=== PATIENT | male | born 1960 | race Caucasian/White ===

== ENCOUNTER 2021-07-08 23:20 | Emergency (ER) | payer SELFPAY | END 2021-07-08 23:50 | disposition left against medical advice (07) | LOC: JD.ED 23:20 | DX: Z53.21 Procedure and treatment not carried out due to patient leaving prior to being seen by health care provider (principal) ==

== ENCOUNTER 2023-03-03 12:55 | Emergency (ER) | payer SELFPAY ==
[2023-03-03] MEDS ORDERED: Sodium Chloride 0.9% 10 ML Syringe FLUSH PRN (12:58)
[2023-03-03 13:13] LABS: BASOPHILS PERCENT AUTO 1.8 % (0.1-1.2); EOSINOPHILS ABSOLUTE AUTO 0.04 K/mm3 (0.04-0.54); EOSINOPHILS PERCENT AUTO 0.7 (0.8-7.0); HEMATOCRIT 44.9 % (40.1-51.0); HEMOGLOBIN 14.8 gm/dl (13.7-17.5); IMMATURE GRAN ABSOLUTE AUTO 0.05 K/mm3 (0.00-0.10); IMMATURE GRAN PERCENT AUTO 0.9 % (<=1.0); LYMPHOCYTES ABSOLUTE AUTO 1.67 K/mm3 (1.32-3.57); LYMPHOCYTES PERCENT AUTO 29.9 % (21.8-53.1); MEAN CORPUSCULAR HEMOGLOBIN 34.7 pg (25.7-32.2); MEAN CORPUSCULAR VOLUME 105.4 fl (79.0-92.2); MEAN PLATELET VOLUME 8.5 fl (9.4-12.3); MONOCYTES ABSOLUTE AUTO 1.01 K/mm3 (0.30-0.82); MONOCYTES PERCENT AUTO 18.1 % (5.3-12.2); NEUTROPHILS ABSOLUTE AUTO 2.71 K/mm3 (1.78-5.38); NEUTROPHILS PERCENT AUTO 48.6 % (34.0-67.9); PLATELET COUNT,PLT 323 K/mm3 (163-337); RED BLOOD CELL COUNT 4.26 M/mm3 (4.63-6.08); WHITE BLOOD CELL COUNT,WBC 5.58 K/mm3 (4.23-9.07)
[2023-03-03 13:31] LABS: A/G RATIO 0.8 (1-2); ALANINE AMINOTRANSFERASE,ALT 51 U/L (16-63); ALBUMIN 3.6 g/dl (3.4-5.0); ALKALINE PHOSPHATASE 94 U/L (46-116); ANION GAP 18.9 (5-15); ASPARTATE AMNIOTRANSFERASE,AST 44 U/L (15-37); BILIRUBIN TOTAL 1.2 mg/dL (0.2-1.0); BLOOD UREA NITROGEN,BUN 9 mg/dL (7-18); BUN/CREATININE RATIO 8.2 (14-18); CALCIUM 8.9 mg/dL (8.5-10.1); CARBON DIOXIDE,CO2 22 mEq/L (21-32); CHLORIDE,CL 105 mEq/L (98-107); CREATININE 1.1 mg/dL (0.7-1.3); ESTIMATED GFR 76 mL/min (>60); GLUCOSE RANDOM 93 mg/dL (70-99); POTASSIUM,K 3.9 mEq/L (3.5-5.1); PROTEIN TOTAL,TP 7.9 g/dl (6.4-8.2); SODIUM,NA 142 mEq/L (136-145)
[2023-03-03 13:55] LABS: APPEARANCE,URINE CLEAR (Clear); BILIRUBIN,URINE NEGATIVE (Negative); COLOR,URINE YELLOW (Yellow); GLUCOSE,URINE NEGATIVE (Negative); KETONES,URINE NEGATIVE (Negative); LEUKOCYTE ESTERASE,URINE NEGATIVE (Negative); NITRITE,URINE NEGATIVE (Negative); OCCULT BLOOD,URINE TRACE-LYSED (Negative); PROTEIN,URINE NEGATIVE (Negative); UROBILINOGEN,URINE 0.2 (0.2-1.0)
[2023-03-03 14:03] LABS: BACTERIA,URINE NOT SEEN /hpf (FEW); MUCUS,URINE NOT SEEN /hpf (FEW); RBC,URINE 0-5 /hpf (0-5); SQUAMOUS EPITHELIAL CELLS,UR 0-5 /hpf (0-5); WBC,URINE 0-5 /hpf (0-5)
[2023-03-03 14:06] LABS: BARBITURATE SCREEN,URINE NEGATIVE (CUTOFF=200); BENZODIAZEPINES SCREEN,URINE NEGATIVE (CUTOFF=150); BUPRENORPHINE SCREEN,URINE NEGATIVE (CUTOFF=10); METHADONE SCREEN, URINE NEGATIVE (CUT0FF=200); METHAMPHETAMINES SCREEN, URINE NEGATIVE (CUTOFF=500); OXYCODONE SCREEN,URINE NEGATIVE (CUT0FF=100); PROPOXYPHENE SCREEN,URINE NEGATIVE (CUTOFF=300); THC SCREEN,URINE 20 NG/ML PRESUMPTIVE POSITIVE (CUTOFF=50)
[2023-03-03 14:17] LABS: AMPHETAMINES SCREEN, URINE NEGATIVE (CUTOFF=500)
== END 2023-03-03 14:34 | disposition home or self-care (01) ==
LOC: JD.ED 12:55
DX: S09.90XA Unspecified injury of head, initial encounter (principal); S00.83XA Contusion of other part of head, initial encounter; F10.920 Alcohol use, unspecified with intoxication, uncomplicated; W10.9XXA Fall (on) (from) unspecified stairs and steps, initial encounter
CPT/HCPCS: 36415; 70450; 70450-26; 72125; 72125-26; 80053; 80306; 80307; 81001; 85025; 99284

== ENCOUNTER 2023-09-17 14:33 | Inpatient (IN) | payer OTHER ==
[2023-09-17] MEDS ORDERED: Diltiazem 25 MG/5 ML SDV IVPUSH ONE ×3 (15:03→18:19)
[2023-09-17 15:33] LABS: BASOPHILS PERCENT AUTO 0.6 % (0.0-1.0); EOSINOPHILS PERCENT AUTO 0.5 % (0.0-6.0); HEMATOCRIT 27.6 % (42.0-52.0); HEMOGLOBIN 8.5 gm/dl (14.0-18.0); IMMATURE GRAN ABSOLUTE AUTO 0.32 K/mm3 (0.00-0.05); IMMATURE GRAN PERCENT AUTO 4.9 % (0.0-0.4); LYMPHOCYTES ABSOLUTE AUTO 0.9 K/mm3 (1.0-4.8); MEAN CORPUSCULAR HEMOGLOBIN 37.1 pg (28.0-32.0); MEAN CORPUSCULAR HGB CONC 30.8 g/dl (32.0-36.0); MEAN CORPUSCULAR VOLUME 120.5 fl (83.0-99.0); MEAN PLATELET VOLUME 9.9 fl (9.4-12.4); MONOCYTES ABSOLUTE AUTO 0.5 K/mm3 (0.0-0.8); MONOCYTES PERCENT AUTO 7.6 % (0.0-8.0); NEUTROPHILS ABSOLUTE AUTO 4.7 K/mm3 (1.8-7.7); NEUTROPHILS PERCENT AUTO 72.4 % (41.0-71.0); NRBC ABSOLUTE 0.07 (0.00-0.02); NRBC PERCENT 1.1 % (0.0-0.2); PLATELET COUNT,PLT 114 K/mm3 (150-400); RED BLOOD CELL COUNT 2.29 M/mm3 (4.52-5.90); WHITE BLOOD CELL COUNT,WBC 6.49 K/mm3 (3.9-11.3)
[2023-09-17] MEDS ORDERED: Pantoprazole 40 MG Vial IVPUSH ONE (15:51)
[2023-09-17 15:52] LABS: A/G RATIO 0.8 (1-2); ALBUMIN 2.8 g/dl (3.4-5.0); BILIRUBIN TOTAL 2.2 mg/dL (0.2-1.0); BUN/CREATININE RATIO 11.2 (14-18); CALCIUM 8.7 mg/dL (8.5-10.1); CREATININE 1.7 mg/dL (0.7-1.3); EST CRCL DRUG DOSING (CG) 32.2 mL/min; ETHANOL BLOOD MEDICAL 0.01 gm% (0.00); PROTEIN TOTAL,TP 6.5 g/dl (6.4-8.2)
[2023-09-17 16:03] LABS: INR 1.05; PROTHROMBIN TIME 11.2 SECONDS (9.7-12.0)
[2023-09-17 16:05] LABS: PTT,PARTIAL THROMBOPLSTIN TIME 26.4 SECONDS (21.7-31.4)
[2023-09-17] MEDS: Diltiazem 125 MG in Sodium Chloride 0.9% 100 ML IV SCH (16:08)
[2023-09-17 16:23] LABS: SLIDE REVIEW ABNORMAL SMEAR
[2023-09-17] MEDS ORDERED: Sodium Chloride 0.9% 500 ML IV ONE ×2 (16:27→16:34)
[2023-09-17 18:50] LABS: BARBITURATE SCREEN,URINE NEGATIVE (CUTOFF=200); BENZODIAZEPINES SCREEN,URINE NEGATIVE (CUTOFF=150); BUPRENORPHINE SCREEN,URINE NEGATIVE (CUTOFF=10); METHADONE SCREEN, URINE NEGATIVE (CUT0FF=200); METHAMPHETAMINES SCREEN, URINE NEGATIVE (CUTOFF=500); OXYCODONE SCREEN,URINE NEGATIVE (CUT0FF=100); THC SCREEN,URINE 20 NG/ML PRESUMPTIVE POSITIVE (CUTOFF=50)
[2023-09-17 19:04] LABS: AMPHETAMINES SCREEN, URINE NEGATIVE (CUTOFF=500)
[2023-09-17] MEDS: Sodium Chloride 0.9% 1,000 ML IV SCH (19:50)
[2023-09-17] MEDS: Pantoprazole 40 MG Vial IVPUSH SCH (20:23)
[2023-09-18] MEDS: Diltiazem 125 MG in Sodium Chloride 0.9% 100 ML IV SCH (00:38)
[2023-09-18 06:25] LABS: BASOPHILS PERCENT AUTO 0.1 % (0.0-1.0); EOSINOPHILS PERCENT AUTO 0.1 % (0.0-6.0); HEMOGLOBIN 9.9 gm/dl (14.0-18.0); IMMATURE GRAN ABSOLUTE AUTO 0.08 K/mm3 (0.00-0.05); LYMPHOCYTES ABSOLUTE AUTO 0.1 K/mm3 (1.0-4.8); LYMPHOCYTES PERCENT AUTO 1.3 % (24.0-44.0); MEAN CORPUSCULAR HEMOGLOBIN 34.4 pg (28.0-32.0); MEAN CORPUSCULAR HGB CONC 34.1 g/dl (32.0-36.0); MEAN CORPUSCULAR VOLUME 100.7 fl (83.0-99.0); MEAN PLATELET VOLUME 10.6 fl (9.4-12.4); MONOCYTES ABSOLUTE AUTO 0.3 K/mm3 (0.0-0.8); MONOCYTES PERCENT AUTO 3.6 % (0.0-8.0); NEUTROPHILS ABSOLUTE AUTO 7.3 K/mm3 (1.8-7.7); NEUTROPHILS PERCENT AUTO 93.9 % (41.0-71.0); NRBC ABSOLUTE 0.03 (0.00-0.02); NRBC PERCENT 0.4 % (0.0-0.2); PLATELET COUNT,PLT 79 K/mm3 (150-400); RED BLOOD CELL COUNT 2.88 M/mm3 (4.52-5.90); WHITE BLOOD CELL COUNT,WBC 7.78 K/mm3 (3.9-11.3)
[2023-09-18 06:44] LABS: A/G RATIO 0.8 (1-2); ALBUMIN 2.5 g/dl (3.4-5.0); BILIRUBIN TOTAL 3.5 mg/dL (0.2-1.0); CALCIUM 7.8 mg/dL (8.5-10.1); EST CRCL DRUG DOSING (CG) 68.68 mL/min; MAGNESIUM 1.2 mg/dL (1.8-2.4); PROTEIN TOTAL,TP 5.8 g/dl (6.4-8.2)
[2023-09-18 07:38] LABS: SLIDE REVIEW ABNORMAL SMEAR
[2023-09-18] MEDS ORDERED: Thiamine 100 MG in Sodium Chloride 0.9% 100 ML IV SCH (09:00)
[2023-09-18] MEDS: Thiamine 200 MG/2 ML MDV IVPUSH SCH (10:10)
[2023-09-18] MEDS: Folic Acid 50 MG/10 ML MDV IV SCH (10:11)
[2023-09-18] MEDS: Pantoprazole 40 MG Vial IVPUSH SCH ×2 (10:13→20:02)
[2023-09-18] MEDS: Nicotine 14 MG/24 Hr Patch TRDERM SCH (10:27)
[2023-09-18] MEDS ORDERED: traZODone 50 MG Tab PO ONE (23:54)
[2023-09-19] MEDS: LORazepam 2 MG/ML SDV IVPUSH PRN ×4 (01:47→18:26)
[2023-09-19] MEDS: Sodium Chloride 0.9% 1,000 ML IV SCH (04:55)
[2023-09-19 05:30] LABS: BASOPHILS PERCENT AUTO 0.4 % (0.0-1.0); EOSINOPHILS ABSOLUTE AUTO 0.1 K/mm3 (0.0-0.4); EOSINOPHILS PERCENT AUTO 0.8 % (0.0-6.0); HEMATOCRIT 31.6 % (42.0-52.0); HEMOGLOBIN 11.3 gm/dl (14.0-18.0); IMMATURE GRAN ABSOLUTE AUTO 0.09 K/mm3 (0.00-0.05); IMMATURE GRAN PERCENT AUTO 1.1 % (0.0-0.4); LYMPHOCYTES ABSOLUTE AUTO 0.2 K/mm3 (1.0-4.8); MEAN CORPUSCULAR HEMOGLOBIN 35.6 pg (28.0-32.0); MEAN CORPUSCULAR HGB CONC 35.8 g/dl (32.0-36.0); MEAN CORPUSCULAR VOLUME 99.7 fl (83.0-99.0); MEAN PLATELET VOLUME 10.9 fl (9.4-12.4); MONOCYTES ABSOLUTE AUTO 0.5 K/mm3 (0.0-0.8); MONOCYTES PERCENT AUTO 5.6 % (0.0-8.0); NEUTROPHILS ABSOLUTE AUTO 7.1 K/mm3 (1.8-7.7); NEUTROPHILS PERCENT AUTO 89.1 % (41.0-71.0); NRBC ABSOLUTE 0.03 (0.00-0.02); NRBC PERCENT 0.4 % (0.0-0.2); PLATELET COUNT,PLT 66 K/mm3 (150-400); RED BLOOD CELL COUNT 3.17 M/mm3 (4.52-5.90)
[2023-09-19 05:39] LABS: A/G RATIO 0.7 (1-2); ALBUMIN 2.4 g/dl (3.4-5.0); BUN/CREATININE RATIO 12.5 (14-18); CALCIUM 7.6 mg/dL (8.5-10.1); CREATININE 0.8 mg/dL (0.7-1.3); EST CRCL DRUG DOSING (CG) 85.85 mL/min; PROTEIN TOTAL,TP 5.9 g/dl (6.4-8.2)
[2023-09-19 06:28] LABS: SLIDE REVIEW ABNORMAL SMEAR
[2023-09-19] MEDS: Pantoprazole 40 MG Vial IVPUSH SCH ×2 (08:42→20:12)
[2023-09-19] MEDS: Thiamine 200 MG/2 ML MDV IVPUSH SCH (08:42)
[2023-09-19] MEDS: Folic Acid 50 MG/10 ML MDV IV SCH (08:43)
[2023-09-19] MEDS: Nicotine 14 MG/24 Hr Patch TRDERM SCH (08:51)
[2023-09-19] MEDS ORDERED: Potassium Bicarbonate/Cit Ac 20 MEQ Effervescent Tab PO ONE (10:30)
[2023-09-19] MEDS ORDERED: Magnesium Sulfate/Water 2 GM/50 ML BAG IV ONE (11:34)
[2023-09-19 21:02] LABS: BASOPHILS PERCENT AUTO 0.2 % (0.0-1.0); EOSINOPHILS ABSOLUTE AUTO 0.1 K/mm3 (0.0-0.4); EOSINOPHILS PERCENT AUTO 0.9 % (0.0-6.0); HEMATOCRIT 29.3 % (42.0-52.0); HEMOGLOBIN 10.3 gm/dl (14.0-18.0); IMMATURE GRAN ABSOLUTE AUTO 0.16 K/mm3 (0.00-0.05); LYMPHOCYTES ABSOLUTE AUTO 0.3 K/mm3 (1.0-4.8); LYMPHOCYTES PERCENT AUTO 3.4 % (24.0-44.0); MEAN CORPUSCULAR HEMOGLOBIN 34.9 pg (28.0-32.0); MEAN CORPUSCULAR HGB CONC 35.2 g/dl (32.0-36.0); MEAN CORPUSCULAR VOLUME 99.3 fl (83.0-99.0); MEAN PLATELET VOLUME 10.2 fl (9.4-12.4); MONOCYTES ABSOLUTE AUTO 0.6 K/mm3 (0.0-0.8); MONOCYTES PERCENT AUTO 6.8 % (0.0-8.0); NEUTROPHILS ABSOLUTE AUTO 7.1 K/mm3 (1.8-7.7); NEUTROPHILS PERCENT AUTO 86.7 % (41.0-71.0); NRBC ABSOLUTE 0.04 (0.00-0.02); NRBC PERCENT 0.5 % (0.0-0.2); PLATELET COUNT,PLT 74 K/mm3 (150-400); RED BLOOD CELL COUNT 2.95 M/mm3 (4.52-5.90); WHITE BLOOD CELL COUNT,WBC 8.18 K/mm3 (3.9-11.3)
[2023-09-20] MEDS: LORazepam 2 MG/ML SDV IVPUSH PRN (03:53)
[2023-09-20 05:42] LABS: BASOPHILS PERCENT AUTO 0.1 % (0.0-1.0); EOSINOPHILS PERCENT AUTO 0.4 % (0.0-6.0); HEMATOCRIT 30.6 % (42.0-52.0); HEMOGLOBIN 10.5 gm/dl (14.0-18.0); IMMATURE GRAN ABSOLUTE AUTO 0.12 K/mm3 (0.00-0.05); IMMATURE GRAN PERCENT AUTO 1.5 % (0.0-0.4); LYMPHOCYTES ABSOLUTE AUTO 0.3 K/mm3 (1.0-4.8); LYMPHOCYTES PERCENT AUTO 3.6 % (24.0-44.0); MEAN CORPUSCULAR HEMOGLOBIN 34.7 pg (28.0-32.0); MEAN CORPUSCULAR HGB CONC 34.3 g/dl (32.0-36.0); MEAN PLATELET VOLUME 11.1 fl (9.4-12.4); MONOCYTES ABSOLUTE AUTO 0.9 K/mm3 (0.0-0.8); MONOCYTES PERCENT AUTO 10.3 % (0.0-8.0); NEUTROPHILS PERCENT AUTO 84.1 % (41.0-71.0); NRBC ABSOLUTE 0.03 (0.00-0.02); NRBC PERCENT 0.4 % (0.0-0.2); PLATELET COUNT,PLT 74 K/mm3 (150-400); RED BLOOD CELL COUNT 3.03 M/mm3 (4.52-5.90); WHITE BLOOD CELL COUNT,WBC 8.26 K/mm3 (3.9-11.3)
[2023-09-20 05:55] LABS: A/G RATIO 0.6 (1-2); ALBUMIN 2.4 g/dl (3.4-5.0); ANION GAP 14.6 (5-15); BILIRUBIN TOTAL 2.6 mg/dL (0.2-1.0); BUN/CREATININE RATIO 12.9 (14-18); CALCIUM 7.3 mg/dL (8.5-10.1); CREATININE 0.7 mg/dL (0.7-1.3); EST CRCL DRUG DOSING (CG) 99.61 mL/min; POTASSIUM,K 2.6 mEq/L (3.5-5.1); PROTEIN TOTAL,TP 6.2 g/dl (6.4-8.2)
[2023-09-20 06:35] LABS: SLIDE REVIEW ABNORMAL SMEAR
[2023-09-20] MEDS: Folic Acid 50 MG/10 ML MDV IV SCH (08:38)
[2023-09-20] MEDS: Pantoprazole 40 MG Vial IVPUSH SCH (08:38)
[2023-09-20] MEDS: Thiamine 200 MG/2 ML MDV IVPUSH SCH (08:39)
[2023-09-20] MEDS ORDERED: LORazepam 2 MG/ML SDV IVPUSH PRN (08:50)
[2023-09-20] MEDS: Nicotine 14 MG/24 Hr Patch TRDERM SCH (08:53)
[2023-09-20] MEDS ORDERED: Magnesium Sulfate/Water 4 GM in Premix Bag 1 BAG IV ONE (09:32)
[2023-09-20] MEDS: Potassium Chloride 10 MEQ in Premix Bag 1 BAG IV SCH ×4 (09:50→13:28)
[2023-09-20] MEDS: Potassium Chloride 20 MEQ Tab.ER PO SCH ×2 (10:11→20:55)
[2023-09-20] MEDS: Magnesium Oxide 400 MG Tab PO SCH ×2 (11:10→20:55)
[2023-09-20] MEDS ORDERED: Potassium Phosphates 3 mMole/ML 15 ML SDV IV ONE (12:22)
[2023-09-20] MEDS ORDERED: Metoprolol Succinate 50 MG Tab.ER PO SCH (12:30)
[2023-09-20] MEDS ORDERED: Potassium Phosphates 30 MMOLE in Sodium Chloride 0.9% 500 ML IV ONE (14:00)
[2023-09-20 15:24] LABS: APPEARANCE,URINE CLEAR (Clear); BILIRUBIN,URINE 3+ (Negative); COLOR,URINE AMBER (Yellow); GLUCOSE,URINE TRACE (Negative); KETONES,URINE 1+ (Negative); LEUKOCYTE ESTERASE,URINE NEGATIVE (Negative); NITRITE,URINE NEGATIVE (Negative); OCCULT BLOOD,URINE NEGATIVE (Negative); PROTEIN,URINE 1+ (Negative); UROBILINOGEN,URINE >=8.0 (0.2-1.0)
[2023-09-20 15:45] LABS: BACTERIA,URINE FEW /hpf (FEW); EPITHELIAL CELLS,URINE 0-5 /hpf (0-5); MUCUS,URINE FEW /hpf (FEW); RBC,URINE 0-5 /hpf (0-5); WBC,URINE 0-5 /hpf (0-5)
[2023-09-20] MEDS: Pantoprazole 40 MG Tab.CR PO SCH (16:36)
[2023-09-20] MEDS: Dextrose 5%-0.9% NaCl 1,000 ML IV SCH (22:41)
[2023-09-21] MEDS: Dextrose 5%-0.9% NaCl 1,000 ML IV SCH (05:39)
[2023-09-21] MEDS: Pantoprazole 40 MG Tab.CR PO SCH ×2 (05:39→15:15)
[2023-09-21 07:12] LABS: HEMATOCRIT 31.8 % (42.0-52.0); HEMOGLOBIN 10.5 gm/dl (14.0-18.0); MEAN PLATELET VOLUME 9.7 fl (9.4-12.4); NRBC ABSOLUTE 0.02 (0.00-0.02); NRBC PERCENT 0.2 % (0.0-0.2); PLATELET COUNT,PLT 109 K/mm3 (150-400); WHITE BLOOD CELL COUNT,WBC 9.26 K/mm3 (3.9-11.3)
[2023-09-21] MEDS: Nicotine 14 MG/24 Hr Patch TRDERM SCH (08:00)
[2023-09-21] MEDS: Acetaminophen 325 MG Tab PO PRN ×2 (08:00→20:36)
[2023-09-21] MEDS: Folic Acid 1 MG Tab PO SCH (08:00)
[2023-09-21] MEDS: Potassium Chloride 20 MEQ Tab.ER PO SCH ×3 (08:00→20:35)
[2023-09-21] MEDS: Magnesium Oxide 400 MG Tab PO SCH (08:00)
[2023-09-21] MEDS: Thiamine 100 MG Tab PO SCH (08:00)
[2023-09-21 10:25] LABS: ANION GAP 14.1 (5-15); BUN/CREATININE RATIO 13.3 (14-18); CALCIUM 7.1 mg/dL (8.5-10.1); CREATININE 0.9 mg/dL (0.7-1.3); EST CRCL DRUG DOSING (CG) 78.75 mL/min; MAGNESIUM 1.6 mg/dL (1.8-2.4); PHOSPHORUS 1.8 mg/dL (2.6-4.7); POTASSIUM,K 3.1 mEq/L (3.5-5.1)
[2023-09-21] MEDS ORDERED: Magnesium Sulfate/Water 4 GM in Premix Bag 1 BAG IV ONE (10:27)
[2023-09-21] MEDS ORDERED: Potassium Phosphates 30 MMOLE in Sodium Chloride 0.9% 500 ML IV ONE (12:00)
[2023-09-21] MEDS ORDERED: Loperamide 2 MG Cap PO ONE (13:03)
[2023-09-21] MEDS: Metoprolol Succinate 25 MG Tab.ER PO SCH (20:36)
[2023-09-21] MEDS ORDERED: Metoprolol Succinate 25 MG Tab.ER PO SCH (21:00)
[2023-09-22] MEDS: Loperamide 2 MG Cap PO PRN ×3 (01:32→19:57)
[2023-09-22 05:30] LABS: HEMATOCRIT 27.3 % (42.0-52.0); HEMOGLOBIN 9.1 gm/dl (14.0-18.0); MEAN CORPUSCULAR HGB CONC 33.3 g/dl (32.0-36.0); MEAN PLATELET VOLUME 9.8 fl (9.4-12.4); PLATELET COUNT,PLT 141 K/mm3 (150-400); RED BLOOD CELL COUNT 2.68 M/mm3 (4.52-5.90); WHITE BLOOD CELL COUNT,WBC 9.03 K/mm3 (3.9-11.3)
[2023-09-22 05:32] LABS: MEAN CORPUSCULAR VOLUME 101.9 fl (83.0-99.0)
[2023-09-22] MEDS: Pantoprazole 40 MG Tab.CR PO SCH ×2 (05:59→16:03)
[2023-09-22 06:01] LABS: ANION GAP 10.8 (5-15); BUN/CREATININE RATIO 12.5 (14-18); CALCIUM 7.8 mg/dL (8.5-10.1); CREATININE 0.8 mg/dL (0.7-1.3); EST CRCL DRUG DOSING (CG) 81.73 mL/min; MAGNESIUM 1.3 mg/dL (1.8-2.4); PHOSPHORUS 2.2 mg/dL (2.6-4.7); POTASSIUM,K 3.8 mEq/L (3.5-5.1)
[2023-09-22] MEDS ORDERED: Magnesium Sulfate/Water 2 GM/50 ML BAG IV ONE (08:01)
[2023-09-22] MEDS ORDERED: Phosphorus #1 250 MG Tab PO ONE (08:02)
[2023-09-22] MEDS: Thiamine 100 MG Tab PO SCH (08:55)
[2023-09-22] MEDS: Nicotine 14 MG/24 Hr Patch TRDERM SCH (08:55)
[2023-09-22] MEDS: Folic Acid 1 MG Tab PO SCH (08:55)
[2023-09-22 12:10] LABS: APPEARANCE,URINE CLEAR (Clear); BILIRUBIN,URINE NEGATIVE (Negative); COLOR,URINE YELLOW (Yellow); GLUCOSE,URINE NEGATIVE (Negative); KETONES,URINE NEGATIVE (Negative); LEUKOCYTE ESTERASE,URINE NEGATIVE (Negative); NITRITE,URINE NEGATIVE (Negative); OCCULT BLOOD,URINE TRACE-INTACT (Negative); PH,URINE 6.5 (5.0-8.0); PROTEIN,URINE NEGATIVE (Negative); UROBILINOGEN,URINE 0.2 (0.2-1.0)
[2023-09-22 12:43] LABS: BACTERIA,URINE MODERATE /hpf (FEW); MUCUS,URINE FEW /hpf (FEW); RBC,URINE 0-5 /hpf (0-5); SQUAMOUS EPITHELIAL CELLS,UR NOT SEEN /hpf (0-5); WBC,URINE 0-5 /hpf (0-5)
[2023-09-22] MEDS: Metoprolol Succinate 25 MG Tab.ER PO SCH (20:00)
[2023-09-23] MEDS: Loperamide 2 MG Cap PO PRN (01:28)
[2023-09-23 05:31] LABS: HEMATOCRIT 28.6 % (42.0-52.0); HEMOGLOBIN 9.7 gm/dl (14.0-18.0); MEAN CORPUSCULAR HEMOGLOBIN 34.8 pg (28.0-32.0); MEAN CORPUSCULAR HGB CONC 33.9 g/dl (32.0-36.0); MEAN CORPUSCULAR VOLUME 102.5 fl (83.0-99.0); MEAN PLATELET VOLUME 10.2 fl (9.4-12.4); PLATELET COUNT,PLT 192 K/mm3 (150-400); RED BLOOD CELL COUNT 2.79 M/mm3 (4.52-5.90); WHITE BLOOD CELL COUNT,WBC 10.47 K/mm3 (3.9-11.3)
[2023-09-23 05:52] LABS: BUN/CREATININE RATIO 11.1 (14-18); CALCIUM 8.2 mg/dL (8.5-10.1); CREATININE 0.9 mg/dL (0.7-1.3); EST CRCL DRUG DOSING (CG) 72.65 mL/min; MAGNESIUM 1.3 mg/dL (1.8-2.4)
[2023-09-23] MEDS: Pantoprazole 40 MG Tab.CR PO SCH ×2 (05:53→15:09)
[2023-09-23] MEDS: Nicotine 14 MG/24 Hr Patch TRDERM SCH (08:25)
[2023-09-23] MEDS: Folic Acid 1 MG Tab PO SCH (08:25)
[2023-09-23] MEDS: Thiamine 100 MG Tab PO SCH (08:26)
[2023-09-23] MEDS ORDERED: Magnesium Sulfate/Water 2 GM/50 ML BAG IV ONE (10:43)
[2023-09-23] MEDS ORDERED: Potassium Bicarbonate/Cit Ac 20 MEQ Effervescent Tab PO ONE (10:44)
== END 2023-09-23 15:25 | disposition left against medical advice (07) | DRG 377 ==
LOC: EDUNIT# → JD.ED 14:33 → JD.ICU 17:32
PROVIDERS: ADMIT Internal Medicine; ATTEND Internal Medicine
PROC: 30233N1 Transfusion of Nonautologous Red Blood Cells into Peripheral Vein, Percutaneous Approach (ICD-10-PCS; principal; 2023-09-17)
DX: K29.01 Acute gastritis with bleeding (principal); E43 Unspecified severe protein-calorie malnutrition; G92.9 Unspecified toxic encephalopathy; R64 Cachexia; F10.232 Alcohol dependence with withdrawal with perceptual disturbance; Z68.1 Body mass index [BMI] 19.9 or less, adult; R62.7 Adult failure to thrive; I95.9 Hypotension, unspecified; D69.6 Thrombocytopenia, unspecified; E87.6 Hypokalemia; I48.91 Unspecified atrial fibrillation; E83.42 Hypomagnesemia; E83.39 Other disorders of phosphorus metabolism; Z11.52 Encounter for screening for COVID-19
CPT/HCPCS: 36415; 36430; 70450; 70450-26; 71045; 71045-26; 80048; 80053; 80306; 80307; 81001; 82140; 83735; 84100; 84484; 85025; 85027; 85610; 85730; 86850; 86900; 86901; 86922; 93005; 96365; 96375; 96376; 97110-GP; 97162-GP; 97530-GP; 99285-25; A9270-GY; C9113; J2060; J3411; J3475; J3480; J3490; J7030; J7040; J7042; P9016; U0002